=== PATIENT | female | born 1980 | race Caucasian/White ===

== ENCOUNTER 2017-05-27 02:31 | Emergency (ER) | payer SELFPAY ==
[~2017-05-27] VITALS: Ht 167.6 cm; Wt 63.6 kg
[2017-05-27 03:03] VITALS: BP 126/76
== END 2017-05-27 03:14 ==
LOC: ER 02:31
DX: F10.129 Alcohol abuse with intoxication, unspecified (principal); F12.10 Cannabis abuse, uncomplicated; Z87.891 Personal history of nicotine dependence
CPT/HCPCS: 99284